=== PATIENT | male | born 1955 | race Two or more races ===

== ENCOUNTER 2017-06-05 05:45 | Inpatient (IN) | payer OTHER ==
[~2017-06-05] VITALS: Ht 190.5 cm; Wt 136.1 kg
[~2017-06-05 05:45] MED LIST: DIPH25CA83 PO; OXYC-133 PO; PRAM0.253 PO; RIVA10TA PO; SIMV20TA6 PO; TERA2CAP4 PO; TRAZ-147 PO; VENL150C58 PO
[2017-06-05] MEDS ORDERED: BACITRACIN 50000 UNITS/VIAL ONE (07:03)
[2017-06-05] MEDS ORDERED: KETOROLAC TROMETHAMINE INJ 30 MG/ML VIAL ONE (07:03)
[2017-06-05] MEDS ORDERED: BUPIVACAINE 0.5 % PF 150 MG/30 ML VIAL ONE ×2 (07:03→09:22)
[2017-06-05] MEDS ORDERED: oxyCODONE HCL SR 10MG TAB.SR.12H PO ONE (07:05)
[2017-06-05] MEDS ORDERED: ACETAMINOPHEN 325 MG TABLET ONE (07:05)
[2017-06-05] MEDS ORDERED: CEFAZOLIN SODIUM/DEXTROSE,ISO 50 ML IV ONE (07:05)
[2017-06-05] MEDS ORDERED: CELECOXIB 100 MG CAPSULE ONE (07:07)
[2017-06-05] MEDS ORDERED: TRANEXAMIC ACID 3,000 MG in SODIUM CHLORIDE IRRIG SOLUTION 70 ML IR ONE (07:30)
[2017-06-05] MEDS ORDERED: FENTANYL PF 100MCG/2ML AMPUL ONE ×3 (08:27→10:39)
[2017-06-05] MEDS ORDERED: ROCURONIUM BROMIDE 50 MG/5 ML ONE (08:28)
[2017-06-05] MEDS ORDERED: MIDAZOLAM HCL 2 MG/2ML VIAL ONE (08:28)
[2017-06-05] MEDS ORDERED: ONDANSETRON HCL/PF 4 MG/2 ML VIAL IV PRN (11:00)
[2017-06-05] MEDS ORDERED: BISACODYL SUPP (10 MG) 10 MG/SUPP.RECT SUPP.RECT RC PRN (11:00)
[2017-06-05] MEDS ORDERED: SENNOSIDES 8.6 MG TABLET PO PRN (11:00)
[2017-06-05] MEDS ORDERED: ZOLPIDEM TARTRATE 5 MG TABLET PO PRN (11:00)
[2017-06-05] MEDS ORDERED: HYDROCODONE/APAP 5/325MG 1 EACH TABLET PO PRN (11:00)
[2017-06-05] MEDS ORDERED: DOCUSATE SODIUM 250 MG CAPSULE PO PRN (11:00)
[2017-06-05] MEDS ORDERED: ACETAMINOPHEN 325 MG TABLET PO PRN (11:00)
--- NOTE | 2017-06-05 11:25 | NUR ---
MS RN NOTES RECEIVED PT FROM OR STAFF IN STABLE CONDITION AFTER RIGHT TKA REVISION DONE BY DR. CASTANEDA. PT IS A/O X4. NO SOB OR SIGNS OF DISTRESS NOTED. BREATHING IS EVEN AND UNLABORED. PT IS ON RA AND SATING WELL @ 98%. HE DENIES ANY PAIN AT THIS TIME. SURGICAL DRESSING INTACT, DRY, AND CLEAN. ORDERS BY DR. CASTANEDA REVIEWED, SIGNED, AND IMPUTED. MEDICATION ORDERS FAXED TO PHARMACY. DR. HUERTA ALERTED OF ADMISSION. BED IN LOW LOCKED POSITION, SIDE RAILS UP X2, CALL LIGHT WITHIN REACH. WILL CONTINUE TO MONITOR
[2017-06-05] MEDS ORDERED: MORPHINE SULFATE 30 MG in IV NS 0.9% 28 ML, PCA TOTAL VOLUME 1 BAG IV PRN ×3 (14:00)
[2017-06-05] MEDS ORDERED: MAGNESIUM HYDROXIDE 30 ML UDC PO PRN (14:00)
[2017-06-05] MEDS ORDERED: MAG HYDROX/AL HYDROX/SIMETH 30 ML UDC PO PRN ×2 (14:00→14:02)
[2017-06-05] MEDS ORDERED: MORPHINE SULFATE INJ 4 MG/ML DISP.SYRIN IV PRN (14:00)
[2017-06-05] MEDS ORDERED: CLONIDINE HCL 0.1 MG TABLET PO PRN (14:00)
[2017-06-05] MEDS ORDERED: PROMETHAZINE HCL 25 MG/ML AMPUL IM PRN (14:00)
[2017-06-05] MEDS ORDERED: diphenhydrAMINE HCL 25 MG CAPSULE PO PRN (14:00)
[2017-06-05] MEDS ORDERED: ONDANSETRON HCL/PF 4 MG/2 ML VIAL IVP PRN (14:00)
[2017-06-05] MEDS ORDERED: MENTHOL/CETYLPYRD (CEPACOL) 1 LOZ LOZENGE MM PRN (14:00)
[2017-06-05] MEDS ORDERED: NALOXONE HCL 0.4 MG/ML AMPUL IV PRN (14:00)
[2017-06-05] MEDS: oxyCODONE IR immediate release 5 MG PO PRN (14:06)
[2017-06-05 16:00] VITALS: BP 140/94
--- NOTE | 2017-06-05 16:39 | NUR ---
MS RN NOTES DR. HUERTA AT BEDSIDE. PT REPORTS THAT HE IS HAVING DIFFICULTY GOING TO THE BATHROOM IN TIME AND IS REQUESTING TO HAVE A HERRERA CATHETER DUE TO IMMOBILITY, PAIN WHEN MOVING, AND NOT WANTING TO USE THE PROVIDED URINAL. PER BRADLEY "HE CAN HAVE A HERRERA FOR NOW, THEN D/C IT ONCE HE BEGINS WALKING WITH PT". WILL CARRY OUT ORDER
[2017-06-05] MEDS ORDERED: RIVAROXABAN 10 MG TABLET PO SCH (17:00)
[2017-06-05] MEDS ORDERED: oxyCODONE HCL SR 10MG TAB.SR.12H PO SCH ×2 (18:00→21:00)
[2017-06-05] MEDS: IV D5/0.45 NACL 1,000 ML IV PRN (18:01)
[2017-06-05] MEDS: ANCEF 1 GM/50 ML D5W IV SCH ×2 (18:08)
[2017-06-05] MEDS: ASPIRIN 325 MG TABLET PO SCH (18:11)
[2017-06-05] MEDS: DOCUSATE SODIUM 100 MG CAPSULE PO SCH (18:12)
[2017-06-05] MEDS: PRAMIPEXOLE DI-HCL 0.25 MG TABLET PO SCH (18:13)
[2017-06-05] MEDS: TRAZODONE 50 MG TABLET PO SCH (18:13)
[2017-06-05] MEDS: SIMVASTATIN 20 MG TABLET PO SCH (18:14)
[2017-06-05] MEDS: TERAZOSIN HCL 1 MG CAPSULE PO SCH (18:15)
--- NOTE | 2017-06-05 19:30 | NUR ---
MS2/RN RECEIVE PATIENT AWAKE, ALERT, ORIENTED, COMFORTABLE, NO C/O PAIN, NO DISTRESS NOTED, CALL LIGHT IN REACH. PATIENT IS S/P RT. KNEE ARTHROPLASTY WITH REVISION OF TIBIAL COMPONENT POLYETHLENE SPACER, KNEE, DONA WRAP ON RT. LEG NOTED, CLEAN AND DRY. WILL MONITOR.
--- NOTE | 2017-06-05 19:32 | NUR ---
MS RN CLOSING NOTES PT REMAINS STABLE SINCE ADMISSION. NO COMPLAINTS OF PAIN AT THIS TIME. MRSA SWAB TAKEN. LAB CALLED FOR QUARRY EQUIPMENT OPERATOR. HERRERA CATHETER INSERTED [facility] PROTOCOL. CATHETER DRAINING CLEAR YELLOW URINE. 500CC OUTPUT NOTED. SAFETY MEASURES IN PLACE. WILL ENDORSE TO NIGHTSHIFT NURSE FOR HAYDEE
[2017-06-05 20:31] VITALS: BP 103/76
[2017-06-05] MEDS: TAMSULOSIN 0.4 MG CAP.SR.24H PO SCH (21:58)
--- NOTE | 2017-06-06 | NUR ---
MS2/RN PATIENT IS SLEEPING AT THIS TIME, EASILY AROUSABLE, APPEAR COMFORTABLE, NO SIGNS OF DISTRESS NOTED, CALL LIGHT IN REACH. WILL CONTINUE TO MONITOR.
[2017-06-06] MEDS: ANCEF 1 GM/50 ML D5W IV SCH ×4 (02:05→09:07)
[2017-06-06] MEDS: oxyCODONE HCL SR 10MG TAB.SR.12H PO SCH ×4 (02:10→17:44)
[2017-06-06] MEDS: IV D5/0.45 NACL 1,000 ML IV PRN ×2 (04:17→17:45)
--- NOTE | 2017-06-06 05:16 | NUR ---
MS2/RN OXYCONTIN NOT DUE YET AT THIS TIME, DUE IS TOO SOON. WILL BE DUE AT 10:00 TODAY PER NEW SCHEDULE
--- NOTE | 2017-06-06 07:03 | NUR ---
MS2/RN PATIENT IS AWAKE WATCHING TV AT THIS TIME. COMFORTABLE, ALL NEEDS ATTENDED AT THIS TIME. WILL CONTINUE TO MONITOR.
[2017-06-06 08:00] VITALS: BP 117/68
--- NOTE | 2017-06-06 08:06 | NUR ---
MS RN: INITIAL NOTE RECEIVED PT A/OX4. NO DISTRESS NOTED. NO SOB NOTED. NO PAIN NOTED. S/P R TKA REVISION. DONE ON06/05/17. HERRERA CATH IN PLACE AND DRAINING. ON REGULAR DIET. L FA #18 RUNNING D5 1/2 NS AT 75ML/HR. SITE CLEAR AND PATENT. RESTING COMFORTABLY IN BED. CALL LIGHT WITHIN REACH.
[2017-06-06 08:48] LABS: HEMOGLOBIN 13.3 g/dL (13.5-17.5)
[2017-06-06] MEDS: ASPIRIN 325 MG TABLET PO SCH ×2 (09:06→17:43)
[2017-06-06] MEDS: DOCUSATE SODIUM 100 MG CAPSULE PO SCH ×2 (09:07→17:43)
[2017-06-06] MEDS: TRAZODONE 50 MG TABLET PO SCH ×2 (09:07→17:44)
[2017-06-06] MEDS: VENLAFAXINE XR 150 MG CAP.SR.24H PO SCH (09:07)
[2017-06-06] MEDS: SENNOSIDES 8.6 MG TABLET PO SCH (09:07)
[2017-06-06] MEDS: oxyCODONE IR immediate release 5 MG PO PRN (13:17)
[2017-06-06 15:55] VITALS: BP 131/80
[2017-06-06] MEDS: PRAMIPEXOLE DI-HCL 0.25 MG TABLET PO SCH (17:44)
[2017-06-06] MEDS: SIMVASTATIN 20 MG TABLET PO SCH (17:44)
[2017-06-06] MEDS: TERAZOSIN HCL 1 MG CAPSULE PO SCH (17:44)
--- NOTE | 2017-06-06 18:44 | NUR ---
MS RN: CLOSING NOTE PT TOOK ALL MEDICATIONS ON TIME. NO ADVERSE REACTIONS NOTED. NO SOB NOTED. NO PAIN NOTED. CONTROLLED WITH PAIN MEDICATIONS. NO DISTRESS NOTED. PT EVAL DONE. ON CPM MACHINE. HERRERA IN PLACE AND DRAINING. OUTPUT 2000ML. PER MD GARRIDO TO D/C HERRERA BUT PT STATED HE IS HAVING A HARD TIME GETTING TO THE TOILET ON TIME AND IS UNABLE TO USE A URINAL DUE TO BPH. WILL KEEP HERRERA UNTIL 06/07/17. FULL WEIGHT BARING. L FA #18 HL. NO IV FLUIDS. RESTING COMFORTABLY IN BED. CALL LIGHT WITHIN REACH.
--- NOTE | 2017-06-06 19:30 | NUR ---
MS2/RN RECEIVE PATIENT AWAKE, ALERT, ORIENTED, COMFORTABLE, WITH TOLERABLE PAIN LEVEL, NO DISTRESS NOTED, CPM GOING AT THIS TIME, CALL LIGHT IN REACH. WILL MONITOR.
[2017-06-06 20:38] VITALS: BP 131/70
[2017-06-06] MEDS: TAMSULOSIN 0.4 MG CAP.SR.24H PO SCH (22:34)
[2017-06-07] MEDS: oxyCODONE HCL SR 10MG TAB.SR.12H PO SCH ×2 (02:50→09:04)
--- NOTE | 2017-06-07 05:19 | NUR ---
MS2/RN F/C REMOVED PER PATIENT'S REQUEST.
--- NOTE | 2017-06-07 07:36 | NUR ---
MS RN: INITIAL NOTE RECEIVED PT A/OX4. AWAKE. MS. HERRERA CATH REMOVED BY ABRASIVE WHEEL MOLDER NURSE. MONITORING FOR URINE OUTPUT. SITE CLEAR. NO DISTRESS NOTED. NO SOB NOTED. PAIN CONTROLLED WITH PAIN MEDICATIONS. AMBULATORY WITH WALKER. ON REGULAR DIET. HL ON #18 L FA. NO IV FLUIDS RUNNING. SITE CLEAR AND PATENT. RESTING COMFORTABLY IN BED. CALL LIGHT WITHIN REACH.
[2017-06-07] MEDS: VENLAFAXINE XR 150 MG CAP.SR.24H PO SCH (09:03)
[2017-06-07] MEDS: ASPIRIN 325 MG TABLET PO SCH (09:03)
[2017-06-07] MEDS: TRAZODONE 50 MG TABLET PO SCH (09:03)
[2017-06-07] MEDS: DOCUSATE SODIUM 100 MG CAPSULE PO SCH (09:03)
[2017-06-07] MEDS: SENNOSIDES 8.6 MG TABLET PO SCH (09:03)
[2017-06-07 09:52] VITALS: BP 151/90
[2017-06-07 14:09] VITALS: BP 134/84
--- NOTE | 2017-06-07 14:10 | NUR ---
MS RN: DISCHARGE NOTE PT D/C HOME WITH [facility]. TOOK ALL MEDICATIONS ON TIME. NO ADVERSE REACTIONS NOTED. NO SOB NOTED PAIN CONTROLLED WITH PAIN MEDICATIONS. A/PX4. MS. HERRERA CATH D/C IN PURIFICATION DIRECTOR. NO URINE RETENTION NOTED. VOIDED 4 TIMES IN URINAL BEFORE LEAVING FACILITY. AMBULATES WITH WALKER. ON REGULAR DIET. VITAL SIGNS STABLE. DOCUMENTED. ALL DISCHARGE INFORMATION PROVIDED. ALL PAPER WORK SINGED BY PATIENT. ALL BELONGINGS ACCOUNTED FOR. COPIES PROVIDED TO PATIENT. [facility] WILL CONTACT PATIENT PER CASE MANAGEMENT. IV ON L FA #18 D/C. SITE CLEAR. DRESSING CHANGE DONE BEFORE D/C PER SYLVESTER SYKES. LEFT FACILITY AMBULATORY WITH WALKER VIA PRIVATE CAR ().
== END 2017-06-07 14:35 | disposition home health service (06) | DRG 468 ==
LOC: DS 05:45 → MEDSG2 13:01
PROVIDERS: ADMIT Internal Medicine; ATTEND Internal Medicine
PROC: 0SPC0JZ Removal of Synthetic Substitute from Right Knee Joint, Open Approach (ICD-10-PCS; principal; 2017-06-05 08:54)
PROC: 0SRC0JZ Replacement of Right Knee Joint with Synthetic Substitute, Open Approach (ICD-10-PCS; principal; 2017-06-05 08:54)
DX: T84.022A Instability of internal right knee prosthesis, initial encounter (principal); E66.01 Morbid (severe) obesity due to excess calories; Z99.81 Dependence on supplemental oxygen; F32.9 Major depressive disorder, single episode, unspecified; G25.81 Restless legs syndrome; M25.361 Other instability, right knee; Y79.2 Prosthetic and other implants, materials and accessory orthopedic devices associated with adverse incidents; G47.33 Obstructive sleep apnea (adult) (pediatric); G47.00 Insomnia, unspecified; G89.29 Other chronic pain; H54.62 Unqualified visual loss, left eye, normal vision right eye; F41.9 Anxiety disorder, unspecified; Z79.891 Long term (current) use of opiate analgesic; Z98.1 Arthrodesis status; Z82.3 Family history of stroke; N40.0 Benign prostatic hyperplasia without lower urinary tract symptoms; K59.00 Constipation, unspecified; H91.90 Unspecified hearing loss, unspecified ear; Z68.37 Body mass index [BMI] 37.0-37.9, adult; Y83.9 Surgical procedure, unspecified as the cause of abnormal reaction of the patient, or of later complication, without mention of misadventure at the time of the procedure; Y92.009 Unspecified place in unspecified non-institutional (private) residence as the place of occurrence of the external cause
CPT/HCPCS: 36415; 85027-TC; 86850-TC; 86921-TC; 87081-TC; 88300-TC; 88304-TC; 88305-TC; 97116-TC; 97530-TC; 97760-TC; A4216; A4217; A6402; J0690; J1885; J2250; J2270; J2405; J2704; J3010; J3490; J7060